=== PATIENT | male | born 1960 | race Caucasian/White ===

== ENCOUNTER → 2017-05-07 | Outpatient (CLI) | payer BC ==
[~2017-05-07] MED LIST: ALBU8.5H IH; AMIO200T47 PO; ASPI-1403 PO; BUP100 PO; DILT240C76 PO; DOFE500C3 PO; DOXY-179 PO; FLUT1DIS27 IH; FLUT1DIS28 IH; HYDR-4309 PO; IPRA4AER IH; LEVO750T25 PO; MONT10TA4 PO; PANT40TA65 PO; PRED20TA6 PO; TIO18R INH; TRAM-420 PO; WARF-12 PO; WARF2.5T11 PO; [UNRECOGNIZED DRUG - CODE] PO
--- NOTE | 2017-05-11 20:02 | RADIOLOGY IMAGING REPORT ---
FACILITY: [facility] [place] PATIENT NAME: GENARO DE OLIVEIRA : [id number] MR: [id number] V: [id number] EXAM DATE: ORDERING PHYSICIAN: CHARLETTE BRAGG TECHNOLOGIST: Xiomara Rubio EXAMINATION:TWO-DIMENSIONAL ECHOCARDIOGRAPH REASON:HISTORY OF PAROXYSMAL ATRIAL FIBRILLATION WITH THREE ABLATIONS. 2D Measurements (normal values in centimeters) LV endLV endRV endVent.LV PostAorticLeftPercent DiastolicSystolicDiastolicSeptumWallRootAtriumShortening (3.5-5.7)(0.9-2.6)(0.6-1.1)(0.6-1.1)(2.0-3.7)(1.9-4.0)(25-35%) [id number]% STROKE VOLUME: 54 mL ESTIMATED EJECTION FRACTION:50% PARASTERNAL LONG AXIS: Overall left ventricular systolic function appears to be at the lower range of normal. No wall motion abnormalities are noted but the posterior wall was not seen well. The right ventricle does appear to be enlarged. Other chamber sizes are normal. The left atrium is the upper range of normal in size in this view. No wall motion abnormalities are noted. Color examination of the valves reveals a trace of mitral insufficiency present. PARASTERNAL SHORT AXIS: Overall left ventricular systolic function again appears to be at the lower range of normal. No wall motion abnormalities are noted. Aortic valve is trileaflet in configuration and appears to open normally. Color examination of the aortic valve was unremarkable. APICAL FOUR AND TWO CHAMBER: Normal left ventricular ejection fraction at the lower range of normal. Right ventricle appears to contract normally. The TAPSE is measured within normal ranges at 1.7 cm2. Color examination of the valves reveals at trace of tricuspid insufficiency. Tricuspid regurgitation V-max is measured at 1.22 m/sec. Estimated right atrial pressure is 3 mmHg. Also a trace of mitral insufficiency present. Aortic valve area and mitral valve area both measure within normal range at 2.4 and 3.1 cm2 respectively. The left atrial volume moderately increased at 35 mL/m2. Right atrial volume is mildly increased at 34 mL/m2. SUBCOSTAL VIEW: No pericardial effusion was noted. No atrial septal or ventricular septal defects were appreciated. Doppler examination of the mitral valve in diastole does reveal the A wave greater than the E wave. IVC is normal in size. OVERALL IMPRESSION: 1. Normal left ventricular ejection fraction at the lower range of normal at 50%. No wall motion abnormalities are noted. 2. The patient appears to be in sinus rhythm throughout this echocardiograph. 3. Mild to moderate right ventricular enlargement. Mild right atrial enlargement and mild to moderate amount of left atrial enlargement. 4. A trileaflet aortic valve with no abnormalities. 5. A trace of mitral and tricuspid insufficiency with estimated right ventricular systolic pressure within normal range at 9 mmHg. 6. No thrombi are noted in any of the chambers but the left atrial appendage was not seen. Dictated by: Laura Hernandez M.D. on 05/08/2017 at 11:11 Transcribed by: SHASHI on 05/11/2017 at 14:28 Approved by: Laura Hernandez M.D. on 05/11/2017 at 20:00 [facility]
== END ==
LOC: US 02:41
PROVIDERS: ATTEND Internal Medicine Cardiovascular Disease
DX: I51.7 Cardiomegaly (principal); I07.1 Rheumatic tricuspid insufficiency; I34.0 Nonrheumatic mitral (valve) insufficiency
CPT/HCPCS: 93306